=== PATIENT | male | born 1990 | race Caucasian/White ===

== ENCOUNTER → 2017-05-11 | Emergency (ER) | payer OTHER ==
[~2017-05-11] VITALS: Ht 188 cm; Wt 86.2 kg
[~2017-05-11] MED LIST: ACETAMINOPHEN 325 MG TABLET PO ONE; ACETAMINOPHEN ES 500 MG TABLET ONE; BUPIVACAINE 0.5 % PF 150 MG/30 ML VIAL ONE; GELATIN SPONGE,ABSORBABLE 1 SPONGE SPONGE TP ONE
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
[2017-05-11 02:52] VITALS: BP 118/75
== END | disposition home or self-care (01) ==
LOC: ER 00:39
DX: S61.302A Unspecified open wound of right middle finger with damage to nail, initial encounter (principal); W45.8XXA Other foreign body or object entering through skin, initial encounter; Y93.89 Activity, other specified; Y92.89 Other specified places as the place of occurrence of the external cause; Y99.8 Other external cause status
CPT/HCPCS: 64450; 99284; A6402; J3490 ×2